=== PATIENT | female | born 1995 | race Two or more races ===

== ENCOUNTER 2020-03-23 20:28 | Outpatient (CLI) | payer MEDICAID ==
[~2020-03-23] VITALS: Ht 160 cm; Wt 93.1 kg
[2020-03-23 21:34] LABS: MICROSCOPIC INDICATED
[2020-03-23] MEDS ORDERED: LACTATED RINGERS 1,000 ML IV SCH (23:30)
[2020-03-23] MEDS ORDERED: FENTANYL PF 100 MCG/2ML IVPush PRN (23:30)
[2020-03-23] MEDS ORDERED: TERBUTALINE 1 MG/ML, 1ML IVPush PRN (23:30)
[2020-03-23] MEDS ORDERED: FENTANYL PF 100 MCG/2ML IV PRN (23:30)
[2020-03-23] MEDS ORDERED: TERBUTALINE 1 MG/ML, 1ML SQ PRN (23:30)
[2020-03-23] MEDS ORDERED: CALCIUM CARBONATE 500 MG TAB.CHEW PO PRN (23:30)
[2020-03-23] MEDS ORDERED: ONDANSETRON 2MG/ML, 2ML IVPush PRN (23:30)
== END 2020-03-23 22:13 | disposition home or self-care (01) ==
LOC: LDOP 20:28 → LDIP 03-24 00:11 → UNDOADMIN 03-24 00:11
PROVIDERS: ATTEND Obstetrics & Gynecology
DX: O26.853 Spotting complicating pregnancy, third trimester (principal); Z3A.34 34 weeks gestation of pregnancy
CPT/HCPCS: 59025; 81001; 86900; 87086

== ENCOUNTER 2020-04-27 07:07 | Inpatient (IN) | payer MEDICAID ==
[~2020-04-27] VITALS: Ht 160 cm; Wt 95.9 kg
[2020-04-27 07:24] VITALS: BP 117/66
[2020-04-27] MEDS ORDERED: PREN1TAB60 PO (07:36)
[2020-04-27] MEDS ORDERED: NEWBORN KIT ONE (08:48)
[2020-04-27] MEDS ORDERED: LIDOCAINE 1%, 20ML ONE (08:48)
[2020-04-27] MEDS ORDERED: OXYTOCIN 30U/ 0.9% NaCL 500ML 500 ML ONE ×2 (08:49→23:51)
[2020-04-27] MEDS ORDERED: MISOPROSTOL 200 MCG TABLET ONE ×2 (08:49)
[2020-04-27] MEDS ORDERED: TERBUTALINE 1 MG/ML, 1ML SQ PRN (09:00)
[2020-04-27] MEDS ORDERED: TERBUTALINE 1 MG/ML, 1ML IVPush PRN (09:00)
[2020-04-27] MEDS ORDERED: FENTANYL PF 100 MCG/2ML IV PRN (09:00)
[2020-04-27] MEDS ORDERED: AMPICILLIN 2 GM in SODIUM CHLORIDE 0.9% 100 ML IVPB ONE (09:00)
[2020-04-27] MEDS ORDERED: OXYTOCIN 30U/ 0.9% NaCL 500ML 500 ML IV ONE (09:00)
[2020-04-27] MEDS ORDERED: FENTANYL PF 100 MCG/2ML ONE ×3 (09:13→15:23)
[2020-04-27] MEDS: LACTATED RINGERS 1,000 ML IV SCH ×2 (09:17→16:25)
[2020-04-27] MEDS: FENTANYL PF 100 MCG/2ML IVPush PRN ×3 (09:22→14:19)
[2020-04-27 09:54] LABS: BASOPHILS % (AUTO) 1 % (0-1); EOSINOPHILS % (AUTO) 1 % (1-7); LYMPHOCYTES % (AUTO) 18 % (22-44); MEAN CORPUSCULAR HEMOGLOBIN 28.7 pg (27.0-34.8); MEAN CORPUSCULAR HGB CONC 32.3 g/dL (32.4-35.8); MEAN PLATELET VOLUME 10.9 fL (7.4-10.4); MONOCYTES % (AUTO) 5 % (2-9); NEUTROPHILS % (AUTO) 76 % (42-75); PLATELET COUNT 160 x10^3/uL (130-400); RED BLOOD COUNT 4.34 x10^6/uL (3.82-5.3); RED CELL DISTRIBUTION WIDTH 13.9 % (9.6-15.2)
[2020-04-27 09:56] LABS: MD NO
[2020-04-27 10:01] LABS: AMPHETAMINE SCREEN, URINE Negative (Negative); BARBITURATE SCREEN, URINE Negative (Negative); BENZODIAZEPINE SCREEN, URINE Negative (Negative); CANNABINOID SCREEN, URINE Negative (Negative); COCAINE SCREEN, URINE Negative (Negative); OPIATE SCREEN, URINE Negative (Negative)
[2020-04-27 10:02] LABS: METHADONE SCREEN, URINE Negative (Negative)
[2020-04-27] MEDS: AMPICILLIN 1 GM in SODIUM CHLORIDE 0.9% 100 ML IVPB SCH ×3 (13:56→21:43)
[2020-04-27] MEDS ORDERED: FENTANYL/BUPIV./NS/PF 250 ML EPIDCONT SCH (14:30)
[2020-04-27] MEDS ORDERED: EPHEDRINE 50 MG/ML, 1ML IVPush PRN (14:30)
[2020-04-27] MEDS: LACTATED RINGERS 1,000 ML IVBOLUS PRN ×2 (14:42→15:45)
[2020-04-27] MEDS ORDERED: FENTANYL/BUPIV./NS/PF 250 ML EPIDCONT ONE (15:23)
[2020-04-27] MEDS ORDERED: BUPIVACAINE 0.25% ONE (15:23)
[2020-04-27] MEDS: OXYTOCIN 30U/ 0.9% NaCL 500ML 500 ML IV PRN (18:35)
[2020-04-28] MEDS ORDERED: SIMETHICONE 80 MG CHEW TAB PO PRN (00:30)
[2020-04-28] MEDS ORDERED: ONDANSETRON 2MG/ML, 2ML IV PRN (00:30)
[2020-04-28] MEDS ORDERED: OXYTOCIN 30U/ 0.9% NaCL 500ML 500 ML IV SCH (00:30)
[2020-04-28] MEDS ORDERED: OXYcodone/APAP 5/325MG TABLET PO PRN ×2 (00:30)
[2020-04-28] MEDS ORDERED: MISOPROSTOL 200 MCG TABLET PR PRN ×2 (00:30)
[2020-04-28] MEDS: IBUPROFEN 600 MG TABLET PO PRN ×4 (00:32→20:52)
[2020-04-28 02:15] VITALS: BP 94/50
[2020-04-28 04:22] VITALS: BP 94/55
[2020-04-28] MEDS: OXYTOCIN 30U/ 0.9% NaCL 500ML 500 ML IV PRN (05:15)
[2020-04-28 07:15] VITALS: BP 106/69
[2020-04-28 10:14] LABS: BASOPHILS % (AUTO) 1 % (0-1); EOSINOPHILS % (AUTO) 1 % (1-7); LYMPHOCYTES % (AUTO) 16 % (22-44); MEAN CORPUSCULAR HEMOGLOBIN 29.1 pg (27.0-34.8); MEAN CORPUSCULAR HGB CONC 32.7 g/dL (32.4-35.8); MEAN PLATELET VOLUME 10.7 fL (7.4-10.4); MONOCYTES % (AUTO) 8 % (2-9); NEUTROPHILS % (AUTO) 75 % (42-75); PLATELET COUNT 144 x10^3/uL (130-400); RED BLOOD COUNT 3.52 x10^6/uL (3.82-5.3)
[2020-04-28 10:16] LABS: MD NO
[2020-04-28] MEDS: DOCUSATE 100 MG CAPSULE PO PRN ×2 (12:06→20:52)
[2020-04-28] MEDS: PRENATAL VIT/IRON/FA 1 EACH TABLET PO SCH (12:06)
[2020-04-28 12:10] VITALS: BP 127/77
[2020-04-28 16:40] VITALS: BP 120/74
[2020-04-28] MEDS: FERROUS GLUCONATE 324 MG TABLET PO SCH (17:56)
[2020-04-28 19:40] VITALS: BP 100/64
[2020-04-29] MEDS: IBUPROFEN 600 MG TABLET PO PRN ×2 (04:41→12:47)
[2020-04-29] MEDS: PRENATAL VIT/IRON/FA 1 EACH TABLET PO SCH (09:09)
[2020-04-29] MEDS: DOCUSATE 100 MG CAPSULE PO PRN (09:09)
[2020-04-29] MEDS: FERROUS GLUCONATE 324 MG TABLET PO SCH ×2 (09:09→12:47)
[2020-04-29 09:11] VITALS: BP 107/70
[2020-04-29] MEDS ORDERED: HYDR-3240 PO (17:06)
[2020-04-29] MEDS ORDERED: IBUP-1222 PO (17:06)
[2020-04-29] MEDS ORDERED: SENN-92 PO (17:07)
== END 2020-04-29 17:57 | disposition home or self-care (01) | DRG 807 ==
LOC: LDOP 07:07 → LDIP 08:52 → 2NW 04-28 02:11
PROVIDERS: ADMIT Obstetrics & Gynecology; ATTEND Obstetrics & Gynecology
PROC: 10E0XZZ Delivery of Products of Conception, External Approach (ICD-10-PCS; principal; 2020-04-27)
PROC: 0HQ9XZZ Repair Perineum Skin, External Approach (ICD-10-PCS; 2020-04-27)
PROC: 3E0S3BZ Introduction of Anesthetic Agent into Epidural Space, Percutaneous Approach (ICD-10-PCS; 2020-04-27)
PROC: 00HU33Z Insertion of Infusion Device into Spinal Canal, Percutaneous Approach (ICD-10-PCS; 2020-04-27)
DX: O99.824 Streptococcus B carrier state complicating childbirth (principal); Z37.0 Single live birth; Z20.828 Contact with and (suspected) exposure to other viral communicable diseases; O70.0 First degree perineal laceration during delivery; Z3A.39 39 weeks gestation of pregnancy
CPT/HCPCS: 36415; 80307; 84112; 85025; 86592; 86850; 86900; 87635; 99285; G0378; J0290; J3010; J2590; J7120

== ENCOUNTER 2020-06-16 03:20 | Emergency (ER) | payer MEDICAID ==
[~2020-06-16] VITALS: Ht 160 cm; Wt 97.5 kg
[~2020-06-16 03:20] MED LIST: HYDR-3240 PO; IBUP-1222 PO; PREN1TAB60 PO; SENN-92 PO
[2020-06-16] MEDS ORDERED: ACETAMINOPHEN 500 MG TABLET ONE (04:12)
[2020-06-16 04:21] LABS: MICROSCOPIC AUTO
[2020-06-16] MEDS ORDERED: ACETAMINOPHEN 500 MG TABLET PO ONE (04:30)
[2020-06-16 04:33] LABS: BASOPHILS % (AUTO) 1 % (0-1); EOSINOPHILS % (AUTO) 3 % (1-7); LYMPHOCYTES % (AUTO) 37 % (22-44); MEAN CORPUSCULAR HEMOGLOBIN 30.7 pg (27.0-34.8); MEAN CORPUSCULAR HGB CONC 33.9 g/dL (32.4-35.8); MEAN PLATELET VOLUME 9.2 fL (7.4-10.4); MONOCYTES % (AUTO) 14 % (2-9); NEUTROPHILS % (AUTO) 46 % (42-75); PLATELET COUNT 196 x10^3/uL (130-400); RED BLOOD COUNT 3.93 x10^6/uL (3.82-5.3); RED CELL DISTRIBUTION WIDTH 15.6 % (9.6-15.2)
[2020-06-16 04:34] LABS: MD NO
[2020-06-16 04:47] LABS: ALBUMIN 3.2 g/dL (3.4-5.0); ANION GAP 6 mmol/L (5-15); CALCIUM 8.9 mg/dL (8.5-10.1); CHLORIDE 108 mmol/L (98-107)
[2020-06-16 04:52] LABS: CREATININE 0.82 mg/dL (0.55-1.02)
--- NOTE | 2020-06-16 05:24 | NUR ---
pt back from ultrasound
[2020-06-16 05:26] VITALS: BP 105/52
[2020-06-16 05:51] LABS: CLUE CELLS NONE SEEN (NONE SEEN); WET PREP WBCS NONE SEEN (FEW)
== END 2020-06-16 06:29 | disposition home or self-care (01) ==
LOC: ED 06:11
DX: R10.32 Left lower quadrant pain (principal); R30.0 Dysuria; N89.8 Other specified noninflammatory disorders of vagina
CPT/HCPCS: 36415; 76830; 80048; 81001; 82040; 84703; 85025; 87210; 87808; 99284